=== PATIENT | female | born 1990 | race Caucasian/White ===

== ENCOUNTER 2017-07-10 06:51 | Emergency (ER) | payer OTHER ==
[~2017-07-10] VITALS: Ht 160 cm; Wt 61.2 kg
[~2017-07-10 06:51] MED LIST: BLISOVI 24 FE1 EACH PO; KEFLEX500 M1 PO
--- NOTE | 2017-07-10 07:39 | ED MVC/FALL/TRAUMA COMPLAINT ---
History of Present Illness General Chief Complaint: Fall Stated Complaint: S/P FALL C/O BACK/NECK PAIN DENIES LOC Source: patient Exam Limitations: no limitations Vital Signs & Intake/Output Vital Signs & Intake/Output Vital Signs Date Time Temp Pulse Resp B/P B/P Pulse O2 O2 Flow FiO2 Mean Ox Delivery Rate 07/10 701 97.7 73 18 130/80 99 Room Air Allergies Coded Allergies: No Known Allergies (07/10/17) Reconcile Medications Cyclobenzaprine HCl 10 MG TABLET 1 TAB PO TID PRN SPASM DO NOT DRIVE WITH THIS MEDICATION Naproxen 500 MG TABLET 1 TAB PO BID PRN PAIN TAKE WITH FOOD Norethindrone-E.estradiol-Iron (Blisovi 24 Fe Tablet) 1 MG-20 MCG (24)/75 MG (4) TABLET 1 TAB PO DAILY BCP (Reported) Triage Note: PT TO ED C/O MID BACK PAIN, LEFT SIDE OF NECK PAIN AND FRONTAL HEADACHE S/P SLIP AND FALL DOWN 4 CEMENT STAIRS 14 HRS AGO. DENIES LOC. DENIES N/N/VISION CHANGES Triage Nurses Notes Reviewed? yes Onset: Abrupt Duration: hour(s): (14) Timing: single episode today Severity: moderate, severe Method of Injury: direct blow, fall Loss of Consciousness: no loss of consciousness Modifying Factors: Worsens With: movement. : No Patient currently breastfeeds: No HPI: This is a 26 year old female who presents to the ER for back pain, neck pain and mild headache after fall down [address] on the way to work last night. She was able to complete her overnight work shift but presents for persistent and worsening pain. No direct head trauma. She states she hit her back over one specific area. No loss of consciousness, ataxia, nausea, vomting or vision changes. Past History Travel History Traveled to [place] past 21 day No Medical History Any Pertinent Medical History? 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 No Review of Systems Review of Systems Constitutional: Denies: chills, fever. Eyes: Reports: no symptoms. Ears, Nose, Throat, Mouth: Reports: no symptoms. Respiratory: Reports: no symptoms. Cardiovascular: Reports: no symptoms. Gastrointestinal/Abdominal: Denies: abdominal pain. Genitourinary: Reports: no symptoms. Musculoskeletal: Reports: back pain, muscle pain, muscle stiffness. Skin: Reports: no symptoms. Neurological/Psychological: Denies: ataxia, confusion, numbness, tingling, weakness. All Other Systems: Reviewed and Negative Physical Exam Physical Exam General Appearance: well developed/nourished, alert, awake, anxious, mild distress Head: atraumatic, normal appearance Eyes: Bilateral: normal appearance, PERRL, EOMI. Ears, Nose, Throat, Mouth: hearing grossly normal, moist mucous membrane Neck: normal inspection, supple, full range of motion, no midline tenderness Respiratory: normal breath sounds, chest non-tender, no respiratory distress Cardiovascular: regular rate/rhythm Gastrointestinal: normal bowel sounds, soft, non-tender Back: normal inspection, normal range of motion, vertebral tenderness Extremities: normal range of motion Neurologic/Psych: no motor/sensory deficits, awake, alert, oriented x 3, normal gait Skin: intact, normal color, warm/dry Diagram Body: 1) tender to palpation, no bruising, no stepoff Core Measures ACS in differential dx? No CVA/TIA Diagnosis No Sepsis Present: No Sepsis Focused Exam Completed? No Progress Differential Diagnosis: C/T/L spine injury Plan of Care: Orders Procedure Date/time Status URINE 07/10 706 Complete Laboratory Tests 07/10/17 0737: Urine Test NEGATIVE Diagnostic Imaging: Viewed by Me: Radiology Read. Discussed w/RAD: Radiology Read. Radiology Impression: PATIENT: IRENE MCKENZIE PRESENT AGE: 26 PATIENT ACCOUNT NO: [id number] : 91 LOCATION: [facility] ORDERING PHYSICIAN: Pura Higginbotham MD SERVICE DATE: 07/10/17 EXAM TYPE: RAD - XRY-CERV SPINE 3 VIEWS OR LESS; XRY-THORACOLUMBAR SPINE EXAMINATION: XR CERVICAL SPINE. XR THORACOLUMBAR SPINE. CLINICAL INFORMATION: Fall on cement steps with pain COMPARISON: None TECHNIQUE: 3 views of the cervical spine. AP and lateral views of the thoracolumbar spine. FINDINGS: Cervical spine: There is reversal of normal cervical lordosis which may be related to patient positioning or muscle spasm. Intervertebral disc heights are preserved. No fracture or prevertebral soft tissue swelling. Thoracolumbar spine: Normal alignment. Normal thoracic kyphosis and lumbar lordosis. Intervertebral disc heights are preserved. No fracture. IMPRESSION: No acute osseous abnormalities of the cervical, thoracic, or lumbar spine. Reversal of normal cervical lordosis may be related to muscle spasm or positioning. If there is a high clinical suspicion of a cervical spine injury, a CT would be recommended. DICTATED BY: Mahin Leong MD DATE/TIME DICTATED:07/10/17824 HAND COLLATOR:NIKOLAY DATE/TIME TRANSCRIBED:07/10/17824 CONFIDENTIAL, DO NOT COPY WITHOUT APPROPRIATE AUTHORIZATION. <Electronically signed in Other Vendor System> SIGNED BY: Mahin Leong MD 07/10/1731 Departure Departure Time of Disposition: 905 Disposition: HOME OR SELF CARE Condition: Stable Clinical Impression Primary Impression: Thoracic injury Referrals: Lauren JOHNSON,Trenton Solano (PCP/Family) Additional Instructions: THERE ARE NO FRACTURES ON YOUR XRAY TAKE THE NAPROXEN AND FLEXERIL DIRECTED FOLLOW UP WITH YOUR DOCTOR IN THE OFFICE RETURN IF WORSE Departure Forms: Customer Survey General Discharge Information Prescriptions: Current Visit Scripts Naproxen 1 TAB PO BID PRN PAIN #30 TAB TAKE WITH FOOD Cyclobenzaprine HCl 1 TAB PO TID PRN SPASM #[address] WITH THIS MEDICATION
--- NOTE | 2017-07-10 08:31 | RADIOLOGY REPORT ---
EXAMINATION: XR CERVICAL SPINE. XR THORACOLUMBAR SPINE. CLINICAL INFORMATION: Fall on cement steps with pain COMPARISON: None TECHNIQUE: 3 views of the cervical spine. AP and lateral views of the thoracolumbar spine. FINDINGS: Cervical spine: There is reversal of normal cervical lordosis which may be related to patient positioning or muscle spasm. Intervertebral disc heights are preserved. No fracture or prevertebral soft tissue swelling. Thoracolumbar spine: Normal alignment. Normal thoracic kyphosis and lumbar lordosis. Intervertebral disc heights are preserved. No fracture. IMPRESSION: No acute osseous abnormalities of the cervical, thoracic, or lumbar spine. Reversal of normal cervical lordosis may be related to muscle spasm or positioning. If there is a high clinical suspicion of a cervical spine injury, a CT would be recommended.
[2017-07-10] MEDS ORDERED: NAPROXEN500 M2 PO (09:09)
[2017-07-10] MEDS ORDERED: CYCLOBENZAPRINE10 M1 PO (09:09)
[2017-07-10 09:30] VITALS: BP 126/84
== END 2017-07-10 09:30 ==
LOC: ERH 06:51
DX: S29.9XXA Unspecified injury of thorax, initial encounter (principal); W10.9XXA Fall (on) (from) unspecified stairs and steps, initial encounter; Y92.9 Unspecified place or not applicable; Y93.9 Activity, unspecified
CPT/HCPCS: 72040; 72080; 81025; 96372; J1885

== ENCOUNTER 2017-09-29 12:28 | Emergency (ER) | payer OTHER ==
[~2017-09-29] VITALS: Ht 160 cm; Wt 61.2 kg
[~2017-09-29 12:28] MED LIST changes: +CYCLOBENZAPRINE10 M1 PO; +NAPROXEN500 M2 PO
--- NOTE | 2017-09-29 12:50 | ED GI/GU/ABDOMINAL COMPLAINT ---
History of Present Illness General Chief Complaint: Abdominal Pain/Flank Pain Stated Complaint: ABD PAIN, NAUSEA Source: patient Exam Limitations: no limitations Vital Signs & Intake/Output Vital Signs & Intake/Output Vital Signs Date Time Temp Pulse Resp B/P B/P Pulse O2 O2 Flow FiO2 Mean Ox Delivery Rate 09/29 1413 97.8 70 18 137/77 98 Room Air 09/29 1241 98.3 108 16 125/91 96 Room Air Allergies Coded Allergies: No Known Allergies (07/10/17) Reconcile Medications Cyclobenzaprine HCl 10 MG TABLET 1 TAB PO TID PRN SPASM DO NOT DRIVE WITH THIS MEDICATION Naproxen 500 MG TABLET 1 TAB PO BID PRN PAIN TAKE WITH FOOD Norethindrone-E.estradiol-Iron (Blisovi 24 Fe Tablet) 1 MG-20 MCG (24)/75 MG (4) TABLET 1 TAB PO DAILY BCP (Reported) Omeprazole 20 MG CAPSULE.DR 1 CAP PO DAILY DYSPEPSIA Ondansetron (Zofran Odt) 4 MG TAB.RAPDIS 1 TAB SL TID NAUSEA Triage Note: PT PRESENTS TO THE ER WITH ABD PAIN ONSET 3 DAYS AGO.. PT STATES SHE WOKE UP THIS MORNING AND THE PAIN WAS WORSE AND CONSTANT STABBING PAIN. 02/08 LMP 1.5 WEEK AGO. LAST BM 0300. PT DENIES +N +D PER PT PAIN IS MOSTLY IN UPPER GASTRIC REGION Triage Nurses Notes Reviewed? yes ? N Is pt currently ? No HPI: 26F no PMH presenting with 3 days of stabbing epigastric pain, worse overnight which wakes her up every night at 4am, continues intermittently throughout the day, lasting minutes to hours. It is described as stabbing, epigastric radiating around circumferentially bilaterally, associated with nausea but no vomiting. Not worsened or improved with food or position. No chest burning or sour taste. No new drugs, medications, supplements. No alcohol intake. No prior history of such pain. No diarrhea, melena, bloody stools, dysuria, chest pain, SOB. Reports subjective fevers. Past History Travel History Traveled to [place] past 21 day No Medical History Any Pertinent Medical History? 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 No Review of Systems Review of Systems Constitutional: Reports: no symptoms. EENTM: Reports: no symptoms. Respiratory: Reports: no symptoms. Cardiovascular: Reports: no symptoms. GI: Reports: no symptoms. Genitourinary: Reports: no symptoms. Musculoskeletal: Reports: no symptoms. Skin: Reports: no symptoms. Neurological/Psychological: Reports: no symptoms. Hematologic/Endocrine: Reports: no symptoms. Immunologic/Allergic: Reports: no symptoms. All Other Systems: Reviewed and Negative Physical Exam Physical Exam General Appearance: well developed/nourished, moderate distress Head: atraumatic, normal appearance Eyes: Bilateral: normal appearance. Ears, Nose, Throat, Mouth: hearing grossly normal, moist mucous membrane Neck: normal inspection, supple, full range of motion Respiratory: normal breath sounds, chest non-tender, no respiratory distress Cardiovascular: regular rate/rhythm Gastrointestinal: soft, guarding, tender epigastic, Weaver's negative, no rebound Back: normal inspection, normal range of motion Extremities: normal range of motion Neurologic/Psych: awake, alert, oriented x 3, normal mood/affect Skin: intact, normal color, warm/dry Core Measures ACS in differential dx? No Sepsis Present: No Sepsis Focused Exam Completed? No Progress Differential Diagnosis: AAA, AMI, appendicitis, biliary colic, bowel obstruction , colon cancer, cholecystitis, diverticulitis, ectopic , endometritis, esophageal varices, gastritis, hepatitis, hernia, hemorrhoids, ischemic bowel, inflamm bowel dis, intrauterine , kidney stone, Alexandra-Maggie tear, ovarian cyst, ovarian torsion, pancreatitis, PID/cervicitis, peptic ulcer, PUD/ GERD, perforated viscous, SBO, threatened AB, UTI/pyelo Plan of Care: Orders Procedure Date/time Status URINE 09/29 1230 Complete URINALYSIS 09/29 1230 Complete LIPASE 09/29 1230 Complete COMPREHENSIVE METABOLIC PANEL 09/29 1230 Complete CBC WITHOUT DIFFERENTIAL 09/29 1230 Complete Laboratory Tests 09/29/17 1350: Urinalysis LIGHT H, Urine Color STRAW, Urine Clarity HAZY H, Urine pH 7.5, Ur Specific [place] 1.015, Urine Protein NEG, Urine Ketones NEG, Urine Nitrite NEG, Urine Bilirubin NEG, Urine Urobilinogen 0.2, Ur Leukocyte Esterase SMALL H, Ur Microscopic SEDIMENT EXAMINED, Urine RBC 1-3, Urine WBC 1-3 H, Ur Epithelial Cells MOD H, Urine Bacteria MOD H, Urine Hemoglobin NEG, Urine Glucose NEG, Urine Test NEGATIVE 09/29/17 1300: Anion Gap 13, Estimated GFR > 60, BUN/Creatinine Ratio 10.0, Glucose 94, Calcium 9.8, Total Bilirubin 0.4, AST 20, ALT 23, Alkaline Phosphatase 57, Total Protein 7.1, Albumin 4.3, Globulin 2.8, Albumin/Globulin Ratio 1.5, Lipase 43, CBC w Diff NO MAN DIFF REQ, RBC 5.06, MCV 83.2, MCH 28.5, MCHC 34.2, RDW 13.3, MPV 8.6 , Gran % 51.1, Lymphocytes % 28.4, Monocytes % 14.7 H, Eosinophils % 5.0, Basophils % 0.8, Absolute Granulocytes 2.8, Absolute Lymphocytes 1.6, Absolute Monocytes 0.8 H, Absolute Eosinophils 0.3, Absolute Basophils 0 Diagnostic Imaging: Viewed by Me: CT Scan. Discussed w/RAD: CT Scan. Radiology Impression: PATIENT: IRENE MCKENZIE PRESENT AGE: 26 PATIENT ACCOUNT NO: [id number] : 91 LOCATION: [facility] ORDERING PHYSICIAN: Tena Easley MD SERVICE DATE: 09/29/17 EXAM TYPE : CAT - CT ABD & PELVIS W IV CONTRAST EXAMINATION: CT ABDOMEN AND PELVIS WITH CONTRAST CLINICAL INFORMATION: 10 out of 10 epigastric pain with guarding and tenderness. Presumptive diagnosis of pancreatitis versus perforation versus obstruction. COMPARISON: None. TECHNIQUE: Multidetector CT volumetric acquisition of the abdomen and pelvis was performed after the administration of 90 mL of intravenous Optiray 320. The data set was reformatted in the sagittal and coronal planes and reviewed on an independent workstation. DLP: 253.54 mGy- cm. FINDINGS: LOWER CHEST: Included lung bases unremarkable. LIVER, GALLBLADDER, BILIARY TREE: Liver normal size and attenuation. No focal cystic or solid mass or intra-or extrahepatic ductal dilatation. Hepatic and portal veins patent. Gallbladder partially distended and within normal limits. PANCREAS: Normal. No ductal dilatation, mass, or surrounding stranding. No evidence of acute pancreatitis. SPLEEN: Normal size and appearance. Splenic vein patent. ADRENAL GLANDS AND KIDNEYS: Adrenal glands normal. Kidneys bilaterally symmetric in size and function. No focal mass, hydronephrosis, nephrolithiasis or perinephric stranding. URETERS AND BLADDER: Ureters decompressed and within normal limits. Bladder partially distended and within normal limits. PELVIC ORGANS: The uterus is normal. Right ovary is normal. The left ovary is asymmetrically enlarged, measuring 4.0 x 2.6 cm in size and demonstrating a peripherally rim enhancing kidney perez shaped 2.1 x 1.4 cm cyst, likely an involuting corpus luteum cyst. Small amount of free fluid is seen in the cul-de-sac, extending towards the right side. GASTROINTESTINAL TRACT: There is a tiny fat-containing umbilical hernia. Small and large bowel loops decompressed. No evidence of bowel obstruction or perforation is seen. Appendix in right lower quadrant normal. LYMPHOVASCULAR STRUCTURES: Abdominal aorta normal in caliber. No periaortic collections. No abdominal or pelvic adenopathy or free fluid collection. BONES: Small sclerotic bone island is seen within the right acetabulum. Bony structures are otherwise unremarkable. IMPRESSION: 1. No focal abnormality seen in the upper abdomen or elsewhere in the abdomen and pelvis. Specifically, no evidence of acute pancreatitis or bowel obstruction or perforation. 2. Asymmetrically enlarged left ovary with peripherally rim-enhancing cystic mass, most consistent with an involuting corpus luteum cyst. Small amount of associated free fluid is seen in the cul-de-sac. 3. Tiny fat-containing umbilical hernia. DICTATED BY: Johann DURÁN,Cindy Marvin DATE/TIME DICTATED:09/29/171457 MUD JACK NOZZLE WORKER:NIKOLAY DATE/TIME TRANSCRIBED:09/29/171457 Initial ED EKG: none Departure Departure Disposition: HOME OR SELF CARE Condition: Stable Clinical Impression Primary Impression: Dyspepsia Referrals: Lauren JOHNSON,Trenton Solano (PCP/Family) Additional Instructions: Follow up with your PCP. If any new or worsening symptoms, return to ER. You can take Tums or Maalox if you have pain. Departure Forms: Customer Survey General Discharge Information Prescriptions: Current Visit Scripts Omeprazole 1 CAP PO DAILY #30 CAP Ondansetron (Zofran Odt) 1 TAB SL TID #15 TAB
[2017-09-29 13:20] LABS: ABSOLUTE BASOPHIL COUNT 0 /CUMM (0.0-0.2); ABSOLUTE EOSINOPHIL COUNT 0.3 /CUMM (0.0-0.7); ABSOLUTE GRANULOCYTE CT 2.8 /CUMM (1.4-6.5); ABSOLUTE LYMPH COUNT 1.6 /CUMM (1.2-3.4); ABSOLUTE MONOCYTE COUNT 0.8 /CUMM (0.10-0.60); BASOPHIL % 0.8 % (0.0-2.0); GRANULOCYTE % 51.1 % (42.2-75.2); HEMATOCRIT 42.1 % (37-47); MEAN CORPUSCULAR HGB 28.5 PG (27.0-31.0); MEAN CORPUSCULAR HGB CONC 34.2 G/DL (33.0-37.0); MEAN CORPUSCULAR VOLUME 83.2 FL (81.0-99.0); MEAN PLATELET VOLUME 8.6 FL (7.4-10.4); PLATELET COUNT 269 /CUMM (130-400); RBC DISTRIBUTION WIDTH 13.3 % (11.5-14.5); RED BLOOD CELL CT 5.06 /CUMM (4.20-5.40); WHITE BLOOD CELL COUNT 5.5 /CUMM (4.8-10.8)
--- NOTE | 2017-09-29 15:15 | CT SCAN REPORT ---
EXAMINATION: CT ABDOMEN AND PELVIS WITH CONTRAST CLINICAL INFORMATION: 10 out of 10 epigastric pain with guarding and tenderness. Presumptive diagnosis of pancreatitis versus perforation versus obstruction. COMPARISON: None. TECHNIQUE: Multidetector CT volumetric acquisition of the abdomen and pelvis was performed after the administration of 90 mL of intravenous Optiray 320. The data set was reformatted in the sagittal and coronal planes and reviewed on an independent workstation. DLP: 253.54 mGy-cm. FINDINGS: LOWER CHEST: Included lung bases unremarkable. LIVER, GALLBLADDER, BILIARY TREE: Liver normal size and attenuation. No focal cystic or solid mass or intra-or extrahepatic ductal dilatation. Hepatic and portal veins patent. Gallbladder partially distended and within normal limits. PANCREAS: Normal. No ductal dilatation, mass, or surrounding stranding. No evidence of acute pancreatitis. SPLEEN: Normal size and appearance. Splenic vein patent. ADRENAL GLANDS AND KIDNEYS: Adrenal glands normal. Kidneys bilaterally symmetric in size and function. No focal mass, hydronephrosis, nephrolithiasis or perinephric stranding. URETERS AND BLADDER: Ureters decompressed and within normal limits. Bladder partially distended and within normal limits. PELVIC ORGANS: The uterus is normal. Right ovary is normal. The left ovary is asymmetrically enlarged, measuring 4.0 x 2.6 cm in size and demonstrating a peripherally rim enhancing kidney perez shaped 2.1 x 1.4 cm cyst, likely an involuting corpus luteum cyst. Small amount of free fluid is seen in the cul-de-sac, extending towards the right side. GASTROINTESTINAL TRACT: There is a tiny fat-containing umbilical hernia. Small and large bowel loops decompressed. No evidence of bowel obstruction or perforation is seen. Appendix in right lower quadrant normal. LYMPHOVASCULAR STRUCTURES: Abdominal aorta normal in caliber. No periaortic collections. No abdominal or pelvic adenopathy or free fluid collection. BONES: Small sclerotic bone island is seen within the right acetabulum. Bony structures are otherwise unremarkable. IMPRESSION: 1. No focal abnormality seen in the upper abdomen or elsewhere in the abdomen and pelvis. Specifically, no evidence of acute pancreatitis or bowel obstruction or perforation. 2. Asymmetrically enlarged left ovary with peripherally rim-enhancing cystic mass, most consistent with an involuting corpus luteum cyst. Small amount of associated free fluid is seen in the cul-de-sac. 3. Tiny fat-containing umbilical hernia.
[2017-09-29] MEDS ORDERED: OMEPRAZOLE20 M2 PO (15:26)
[2017-09-29] MEDS ORDERED: ZOFRAN ODT4 M1 SL (15:26)
[2017-09-29 15:39] VITALS: BP 146/89
== END 2017-09-29 15:43 ==
LOC: ERH 12:28
PROVIDERS: Physician Assistant Medical
DX: R10.13 Epigastric pain (principal)
CPT/HCPCS: 74177; 81001; 81025; 96374